=== PATIENT | male | born 1960 | race African-American/Black ===

== ENCOUNTER 2021-11-04 11:39 | Day surgery (SDC) | payer MEDICARE ==
[2021-11-04] MEDS ORDERED: Sodium Chloride 0.9(Preservative Free) 10 ML IJ ONE (11:40)
[2021-11-04] MEDS ORDERED: Depo-Medrol 40 MG/ML IM ONE (11:40)
[2021-11-04] MEDS ORDERED: Lactated Ringers 1,000 ML IV ONE (14:31)
[2021-11-04] MEDS ORDERED: DIPRIVAN 200 MG/20 ML IV ONE (15:14)
--- NOTE | 2021-11-04 16:35 | XRAY ---
Indication: Right L4-S1 transforaminal NELLIE. Intraoperative fluoroscopy provided for 26 seconds. 3 digital spot image submitted for interpretation demonstrates posterior needle tips projecting over the expected right L4 and L5 nerve roots. Small amount of contrast injected for needle tip placement. Correlate with intraoperative findings/report.
--- NOTE | 2021-11-04 17:08 | XRAY ---
26 seconds of fluoroscopy was used in surgery for a right L4-S1 transforaminal NELLIE.
== END 2021-11-04 15:41 | disposition home or self-care (01) ==
LOC: SDC-PAIN 11:39
PROVIDERS: ATTEND Psychiatry & Neurology Pain Medicine
DX: M54.16 Radiculopathy, lumbar region (principal); I10 Essential (primary) hypertension; Z79.899 Other long term (current) drug therapy
CPT/HCPCS: 64483; 64484; 72100; 77003; J1030; J2704; Q9966